=== PATIENT | male | born 1990 | race Caucasian/White ===

== ENCOUNTER 2016-08-01 12:33 | Emergency (ER) | payer SELFPAY ==
[~2016-08-01] VITALS: Ht 177.8 cm; Wt 96.2 kg
[~2016-08-01 12:33] MED LIST: AMOXICILLIN500 M2 PO; AMOXICILLIN500 MG PO; ANTIBIOTIC O500 U/GM TP; ATARAX25 MG PO; BACTRIM DS 8001 TA1 PO; BENADRYL25 MG PO; CLARITIN10 MG PO; CLINDAMYCIN HC300 MG PO; FLEXERIL10 MG PO; HYDROCODONE BIT1 T11 PO; IBU800 M1 PO; IBU800 MG PO; KEFLEX500 MG PO; MEDROL DOSEPAK4 MG PO; MOTRIN800 MG PO; Motrin,Rufen800 MG PO; NKHM; PEN-VEE K500 MG PO; PREDNICOT20 MG PO; PREDNISONE10 MG PO; Peridex 473 ML473 ML PO; ROBAXIN750 MG PO; TOPICAINE4% T; TRAMADOL HCL50 MG PO; ULTRACET 325 MG1 TAB PO; VOLTAREN50 M1 PO; WYMOX500 MG PO; ZANTAC 150150 MG PO
[2016-08-01] MEDS ORDERED: IBU800 M1 PO (13:05)
[2016-08-01] MEDS ORDERED: CLEOCIN HCL300 MG PO (13:06)
[2016-08-01] MEDS ORDERED: HYDROCODONE BIT1 T11 PO (13:48)
[2016-08-01] MEDS ORDERED: Peridex 473 ML473 ML PO (13:48)
[2016-08-01] MEDS ORDERED: LIDOCAINE VISC100 ML MM (13:48)
== END 2016-08-01 13:59 | disposition home or self-care (01) ==
LOC: ED 12:33
DX: K08.89 Other specified disorders of teeth and supporting structures (principal)

== ENCOUNTER 2017-01-13 12:57 | Emergency (ER) | payer SELFPAY ==
[~2017-01-13] VITALS: Ht 177.8 cm; Wt 93.4 kg
[~2017-01-13 12:57] MED LIST changes: +CLEOCIN HCL300 MG PO; +LIDOCAINE VISC100 ML MM
[2017-01-13] MEDS ORDERED: PREDNISONE20 M1 PO (13:43)
== END 2017-01-13 13:54 | disposition home or self-care (01) ==
LOC: ED 12:57
DX: L23.7 Allergic contact dermatitis due to plants, except food (principal)

== ENCOUNTER 2019-01-02 09:52 | Emergency (ER) | payer SELFPAY ==
[~2019-01-02] VITALS: Ht 177.8 cm; Wt 95.3 kg
[~2019-01-02 09:52] MED LIST changes: +PREDNISONE20 M1 PO
[2019-01-02] MEDS ORDERED: DEBROX15 ML OT (10:17)
== END 2019-01-02 10:42 | disposition home or self-care (01) ==
LOC: ED 09:52
DX: H61.23 Impacted cerumen, bilateral (principal); Z79.899 Other long term (current) drug therapy

== ENCOUNTER 2019-04-16 05:49 | Emergency (ER) | payer SELFPAY ==
[~2019-04-16] VITALS: Ht 177.8 cm; Wt 94.8 kg
[~2019-04-16 05:49] MED LIST changes: +DEBROX15 ML OT
[2019-04-16] MEDS ORDERED: AMOXICILLIN500 M2 PO (06:34)
== END 2019-04-16 06:47 | disposition home or self-care (01) ==
LOC: ED 05:49
DX: J03.90 Acute tonsillitis, unspecified (principal); Z79.899 Other long term (current) drug therapy

== ENCOUNTER 2019-07-21 19:39 | Emergency (ER) | payer SELFPAY ==
[~2019-07-21] VITALS: Ht 177.8 cm; Wt 96.2 kg
== END 2019-07-21 21:53 | disposition home or self-care (01) ==
LOC: ED 19:39
DX: S62.307A Unspecified fracture of fifth metacarpal bone, left hand, initial encounter for closed fracture (principal); Z79.2 Long term (current) use of antibiotics; Z79.899 Other long term (current) drug therapy; Y29.XXXA Contact with blunt object, undetermined intent, initial encounter; Y93.89 Activity, other specified; Y92.69 Other specified industrial and construction area as the place of occurrence of the external cause; Y99.0 Civilian activity done for income or pay

== ENCOUNTER 2020-02-06 16:53 | Emergency (ER) | payer SELFPAY ==
[~2020-02-06] VITALS: Ht 177.8 cm; Wt 99.8 kg
[2020-02-06] MEDS ORDERED: PREDNISONE20 M1 PO (17:20)
== END 2020-02-06 17:29 | disposition home or self-care (01) ==
LOC: ED 16:53
DX: L25.9 Unspecified contact dermatitis, unspecified cause (principal); Z79.899 Other long term (current) drug therapy

== ENCOUNTER 2020-10-09 19:00 | Emergency (ER) | payer SELFPAY ==
[~2020-10-09] VITALS: Ht 177.8 cm; Wt 97.5 kg
== END 2020-10-09 19:37 | disposition left against medical advice (07) ==
LOC: ED 19:00
DX: M25.561 Pain in right knee (principal); Z79.899 Other long term (current) drug therapy

== ENCOUNTER 2021-04-04 09:25 | Emergency (ER) | payer SELFPAY ==
[~2021-04-04] VITALS: Ht 177.8 cm; Wt 103.4 kg
== END 2021-04-04 10:08 | disposition home or self-care (01) ==
LOC: ED 09:25
DX: H10.89 Other conjunctivitis (principal)

== ENCOUNTER 2022-02-08 12:56 | Emergency (ER) | payer SELFPAY ==
[~2022-02-08] VITALS: Ht 177.8 cm; Wt 106.6 kg
[2022-02-08] MEDS ORDERED: Motrin,Rufen800 MG PO (13:17)
[2022-02-08] MEDS ORDERED: AMOXICILLIN500 M2 PO (13:17)
== END 2022-02-08 13:38 | disposition home or self-care (01) ==
LOC: ED 12:56
DX: K08.89 Other specified disorders of teeth and supporting structures (principal); Z79.2 Long term (current) use of antibiotics; Z79.899 Other long term (current) drug therapy

== ENCOUNTER 2022-04-22 06:45 | Emergency (ER) | payer SELFPAY ==
[~2022-04-22] VITALS: Ht 175.2 cm; Wt 104.3 kg
[2022-04-22] MEDS ORDERED: ZITHROMAX250 MG PO (09:56)
== END 2022-04-22 10:05 | disposition home or self-care (01) ==
LOC: ED 06:45
DX: J02.9 Acute pharyngitis, unspecified (principal); R05.9 Cough, unspecified; R09.81 Nasal congestion

== ENCOUNTER 2024-10-14 13:31 | Emergency (ER) | payer BC ==
[~2024-10-14] VITALS: Ht 177.8 cm; Wt 104.3 kg
[~2024-10-14 13:31] MED LIST changes: +ZITHROMAX250 MG PO
[2024-10-14] MEDS ORDERED: AMOX-CLAV 875-1 EACH PO (14:15)
== END 2024-10-14 14:30 | disposition home or self-care (01) ==
LOC: ED 13:31
DX: J01.90 Acute sinusitis, unspecified (principal); F17.210 Nicotine dependence, cigarettes, uncomplicated